=== PATIENT | male | born 1945 | race Caucasian/White ===

== ENCOUNTER 2017-10-25 07:52 | Day surgery (SDC) | payer MEDICARE, SELFPAY ==
[2017-10-25] MEDS ORDERED: Propofol 200 MG/20 ML SDV ONE ×2 (08:24→09:37)
[2017-10-25] MEDS ORDERED: fentaNYL 100 MCG/2 ML SDV ONE (08:24)
[2017-10-25] MEDS ORDERED: Sodium Chloride 0.9% 1,000 ML IV SCH (09:00)
[2017-10-25 10:50] VITALS: BP 143/91
--- NOTE | 2017-10-25 15:29 | OR ---
DATE OF PROCEDURE: 10/25/2017 PROCEDURES: 1. Esophagogastroduodenoscopy. 2. Colonoscopy. FINDINGS: 1. Inflammation in the duodenum consistent with duodenitis. 2. Inflammation in the antrum consistent with gastritis. 3. Inflammation at GE junction consistent with reflux disease. 4. All of the #1, #2, and #3 all biopsied using cold biopsy forceps on multiple locations. 5. Mass at 45 cm nearly completely obstructing the lumen (biopsied using cold biopsy forceps, hot snare, and tattooed distally x2 with Bekah ink). 6. Diverticulosis, significant. 7. Incomplete colonoscopy due to the inability to advance the scope past this mass. RISKS: Risks, benefits, alternatives, limitations including, but not limited to infection, bleeding, and perforation were explained to the patient, who wished to proceed. PREOPERATIVE DIAGNOSIS: Positive FIT test. POSTOPERATIVE DIAGNOSIS: Positive FIT test. PROCEDURE IN DETAIL: The patient was placed in the left lateral decubitus position. The EGD scope was introduced and advanced atraumatically to the second part of the duodenum. In the duodenal bulb, only there was inflammation consistent with duodenitis. This was biopsied using cold biopsy forceps. Similar-type inflammation/gastritis was noted in the antrum, which was also biopsied for H. pylori evaluation. Upon retroflex, the patient had no hiatal hernia, but did have inflammation at the GE junction consistent with reflux disease; therefore, this was biopsied multiple times. However, the patient has had a rather an avascular looking distal esophagus; therefore, limited biopsies were performed. The remainder of the esophagus was normal. Digital rectal exam was performed next and it did not show any abnormalities. The scope was introduced and advanced atraumatically to 45 cm from the anal verge. At this location, there was a near obstructing mass. This was biopsied multiple times and this was tattooed with Bekah ink distally to this. Of note, even if this is a benign process, this is almost completely obstructing the lumen and will inevitably obstruct the lumen. The patient also has diverticulosis, however, the procedure was terminated at this time due to the mass and inability to move past that. The patient tolerated the procedure well. Cory Regalado MD /[id number]
== END 2017-10-25 11:35 | disposition home or self-care (01) ==
LOC: JP.SDS 07:52
PROVIDERS: ATTEND Surgery
DX: K29.50 Unspecified chronic gastritis without bleeding (principal); K29.80 Duodenitis without bleeding; K57.30 Diverticulosis of large intestine without perforation or abscess without bleeding; K63.5 Polyp of colon; I10 Essential (primary) hypertension; Z88.8 Allergy status to other drugs, medicaments and biological substances
CPT/HCPCS: 43239; 45380; 88305; 88342; J2704; J3010; J7040

== ENCOUNTER 2018-01-31 08:47 | Day surgery (SDC) | payer MEDICARE, OTHER, SELFPAY ==
[~2018-01-31 08:47] MED LIST: Lactated Ringers 1,000 ML IV SCH
[2018-01-31] MEDS ORDERED: ceFAZolin 2 GM in Premix Bag 1 BAG IV ONE (09:00)
[2018-01-31] MEDS ORDERED: Midazolam 1 MG/ML 2 ML SDV ONE (10:32)
[2018-01-31] MEDS ORDERED: fentaNYL 100 MCG/2 ML SDV ONE (10:32)
[2018-01-31] MEDS ORDERED: Propofol 200 MG/20 ML SDV ONE (10:32)
[2018-01-31 12:49] VITALS: BP 125/68
--- NOTE | 2018-02-01 07:44 | OR ---
DATE OF PROCEDURE: 01/31/2018 PROCEDURE: Colonoscopy to the transverse colon. FINDINGS: Large polypoid type bleeding mass, not amenable to snare resection. COMPLICATIONS: None. COAT EXAMINER: None. PREOPERATIVE DIAGNOSIS: Mass at 45 cm. POSTOPERATIVE DIAGNOSIS: Mass at 45 cm. RISK: Risks, benefits, alternatives, limitations including, but not limited to infection, bleeding, and perforation were explained to the patient and wished to proceed. PROCEDURE IN DETAIL: The patient was placed in left lateral decubitus position. Digital rectal exam was performed without abnormality. The scope was introduced and was able to passed past the mass. Multiple attempts were made to excise this mass using a snare; however, even with our larger snare and multiple snares were unable to be around this. Piecemeal biopsy was then performed with hot snare. The Endomark ink was injected at the distal margin of the base. No other abnormalities were noted. The patient tolerated the procedure well. Cory Regalado MD /[id number]
== END 2018-01-31 13:00 | disposition home or self-care (01) ==
LOC: JP.SDS 08:47
PROVIDERS: ATTEND Surgery
DX: K63.5 Polyp of colon (principal); Z88.8 Allergy status to other drugs, medicaments and biological substances
CPT/HCPCS: 88305; J0690; J2250; J2704; J3010; J7120

== ENCOUNTER 2018-02-08 05:28 | Inpatient (IN) | payer MEDICARE, OTHER ==
[2018-02-08] MEDS ORDERED: Celecoxib 200 MG Cap PO ONE (05:45)
[2018-02-08] MEDS ORDERED: Acetaminophen 500 MG Tab PO ONE (05:45)
[2018-02-08] MEDS ORDERED: Gabapentin 300 MG Cap PO ONE (05:45)
[2018-02-08] MEDS ORDERED: Scopolamine 1.5 MG Transdermal Patch TOP SCH (05:45)
[2018-02-08] MEDS: Lactated Ringers 1,000 ML IV SCH ×2 (06:43→12:16)
[2018-02-08] MEDS ORDERED: ceFAZolin 2 GM in Premix Bag 1 BAG IV ONE (07:00)
[2018-02-08] MEDS ORDERED: Albuterol/Ipratropium 3.0-0.5 MG/3 ML Neb Soln NEB ONE (07:15)
[2018-02-08] MEDS ORDERED: Succinylcholine 200 MG/10 ML MDV ONE (07:23)
[2018-02-08] MEDS ORDERED: Neostigmine Methylsulfate 1 MG/ML 5 ML Syringe ONE (07:23)
[2018-02-08] MEDS ORDERED: Rocuronium 50 MG/5 ML Vial ONE (07:23)
[2018-02-08] MEDS ORDERED: Ondansetron 4 MG/2 ML SDV ONE (07:23)
[2018-02-08] MEDS ORDERED: Glycopyrrolate 0.2 MG/ML 5 ML MDV ONE (07:23)
[2018-02-08] MEDS ORDERED: Propofol 200 MG/20 ML SDV ONE (07:23)
[2018-02-08] MEDS ORDERED: Dexamethasone 4 MG/ML SDV ONE (07:23)
[2018-02-08] MEDS ORDERED: fentaNYL 250 MCG/5 ML SDV ONE ×2 (07:24→08:41)
[2018-02-08] MEDS ORDERED: metroNIDAZOLE/Normal Saline 500 MG in Premix Bag 1 BAG IV ONE (07:30)
[2018-02-08] MEDS ORDERED: Ropivacaine 40 ML, Dexamethasone 8 MG, EPINEPHrine 0.4 MG, Sodium Chloride 0.9% 37.6 ML NERVRT ONE ×4 (07:30)
[2018-02-08] MEDS ORDERED: Bupivacaine 0.5% 50 ML MDV ONE (10:56)
[2018-02-08] MEDS ORDERED: Lidocaine 1% with EPINEPHrine 1:100,000 50 ML MDV ONE (10:56)
[2018-02-08] MEDS ORDERED: Scopolamine 1.5 MG Transdermal Patch TOP ONE (11:23)
[2018-02-08] MEDS ORDERED: diphenhydrAMINE 50 MG/ML SDV IVPUSH PRN (11:23)
[2018-02-08] MEDS ORDERED: Nicotine 7 MG/24 Hr Patch TRDERM PRN (13:52)
[2018-02-08] MEDS: ceFAZolin 2 GM in Premix Bag 1 BAG IV SCH ×2 (14:43→21:04)
[2018-02-08] MEDS: fentaNYL 100 MCG/2 ML SDV IVPUSH PRN ×4 (15:22→21:24)
[2018-02-08] MEDS: metroNIDAZOLE/Normal Saline 500 MG in Premix Bag 1 BAG IV SCH ×2 (15:58→23:21)
[2018-02-08] MEDS: VERIFY SCOP PATCH TOP SCH (15:59)
[2018-02-08] MEDS: oxyCODONE 5 MG Tab PO PRN ×2 (19:26→23:21)
[2018-02-08] MEDS: Albuterol/Ipratropium 3.0-0.5 MG/3 ML Neb Soln NEB PRN (21:11)
[2018-02-09] MEDS: Lactated Ringers 1,000 ML IV SCH ×2 (03:07→17:27)
[2018-02-09] MEDS: oxyCODONE 5 MG Tab PO PRN ×7 (03:07→20:52)
[2018-02-09] MEDS: fentaNYL 100 MCG/2 ML SDV IVPUSH PRN (07:20)
[2018-02-09] MEDS ORDERED: BRANDY PO PRN (08:01)
[2018-02-09] MEDS: VERIFY SCOP PATCH TOP SCH (08:34)
[2018-02-09] MEDS ORDERED: Ertapenem 1 GM in Sodium Chloride 0.9% 100 ML IV ONE (08:47)
[2018-02-09] MEDS: Clopidogrel 75 MG Tab PO SCH (08:51)
[2018-02-09] MEDS: Enoxaparin 40 MG/0.4 ML Syringe SUBCUT SCH (08:51)
[2018-02-09] MEDS ORDERED: Non-Formulary Medication 1 Each (Atorvastatin [Lipitor] 40 MG) PO SCH (09:00)
[2018-02-09] MEDS ORDERED: Non-Formulary Medication 1 Each (Cetirizine Hcl [Zyrtec] 10 MG) PO SCH (09:00)
[2018-02-09] MEDS: atorvaSTATin 20 MG Tab PO SCH (09:20)
[2018-02-09] MEDS: Cetirizine 10 MG Tab PO SCH (09:20)
[2018-02-09] MEDS: Sennosides 8.6 MG Tab PO SCH ×2 (09:20→20:52)
[2018-02-09] MEDS: Acetaminophen 1,000 MG in Premix Bag 1 BAG IV SCH ×3 (09:20→19:34)
[2018-02-09] MEDS: Bisacodyl 5 MG Tab PO SCH ×2 (09:20→20:52)
[2018-02-09] MEDS: Tamsulosin 0.4 MG Cap.ER PO SCH (09:20)
--- NOTE | 2018-02-09 09:35 | PN ---
DATE OF SERVICE: 02/09/2018 SUBJECTIVE: The patient is doing well. Pain is well controlled. No nausea, vomiting, shortness of breath, or chest pain. OBJECTIVE: VITAL SIGNS: Stable. Temperature 97.8, blood pressure 129/77, 97% on room air, respirations 20. CARDIOVASCULAR: Regular rhythm and rate. RESPIRATORY: Lungs are clear to auscultation bilaterally. ABDOMEN: Bowel sounds positive. Dressings are intact. LABORATORY RESULTS: Show a hemoglobin of 11.6. Creatinine is 1.5. Glucose 133. ASSESSMENT: Status post sigmoid colon resection. PLAN: We will advance his diet today. We will start Ensure cartons 3 times a day. We will continue the epidural. We will enforce mobilization, saline lock if his p.o. is being tolerated. We will hold the ibuprofen as it is a contraindication with his Plavix. Start Flomax. Continue Entereg. Start Dulcolax. Discharge plan, Physical Therapy to see. Reassess in the a.. Cory Regalado MD /[id number]
[2018-02-09] MEDS: Brimonidine 0.2% Ophth Soln 5 ML Bottle EYEBOTH SCH (12:23)
[2018-02-09] MEDS: Albuterol/Ipratropium 3.0-0.5 MG/3 ML Neb Soln NEB PRN (19:28)
[2018-02-09] MEDS: Latanoprost 0.005% Ophth Soln 2.5 ML Bottle EYEBOTH SCH (20:54)
[2018-02-10] MEDS: fentaNYL 100 MCG/2 ML SDV IVPUSH PRN (01:04)
[2018-02-10] MEDS: Ondansetron 4 MG/2 ML SDV IVPUSH PRN (01:06)
[2018-02-10] MEDS: Acetaminophen 1,000 MG in Premix Bag 1 BAG IV SCH ×2 (03:32→08:55)
[2018-02-10] MEDS: Brimonidine 0.2% Ophth Soln 5 ML Bottle EYEBOTH SCH (08:55)
[2018-02-10] MEDS: Tamsulosin 0.4 MG Cap.ER PO SCH (08:55)
[2018-02-10] MEDS: Cetirizine 10 MG Tab PO SCH (08:55)
[2018-02-10] MEDS: Sennosides 8.6 MG Tab PO SCH ×2 (08:56→21:09)
[2018-02-10] MEDS: Clopidogrel 75 MG Tab PO SCH (08:56)
[2018-02-10] MEDS: Bisacodyl 5 MG Tab PO SCH ×2 (08:57→21:08)
[2018-02-10] MEDS: atorvaSTATin 20 MG Tab PO SCH (08:57)
[2018-02-10] MEDS: Enoxaparin 40 MG/0.4 ML Syringe SUBCUT SCH (08:57)
[2018-02-10] MEDS: Lactated Ringers 1,000 ML IV SCH (08:59)
[2018-02-10] MEDS: VERIFY SCOP PATCH TOP SCH (08:59)
--- NOTE | 2018-02-10 12:10 | PN ---
DATE OF SERVICE: 02/10/2018 SUBJECTIVE: The patient is doing well today. Pain is controlled. No nausea, vomiting, shortness of breath, or chest pain. No GI activity yet. OBJECTIVE: VITAL SIGNS: Stable. CARDIOVASCULAR: Regular rhythm and rate. RESPIRATORY: Lungs are clear to consultation bilaterally. ABDOMEN: Bowel sounds are positive, but limited. Incision is healing well. BRANDI output is serosanguineous. LABORATORY RESULTS: Show improvement in hemoglobin, white blood cell count, and creatinine. ASSESSMENT: Status post sigmoid colon resection. PLAN: We will continue to work on ambulation. We will restrict his diet slightly today as he may be developing an ileus. We will also remove his Jones catheter and other standard postop day 2 Fast-Track protocols. Of note, the progress note on 02/09 referred to his epidural, that was an error. The patient does not have nor has had an epidural during this hospitalization. Cory Regalado MD /[id number]
[2018-02-10] MEDS: oxyCODONE 5 MG Tab PO PRN ×2 (16:09→21:10)
[2018-02-10] MEDS: Latanoprost 0.005% Ophth Soln 2.5 ML Bottle EYEBOTH SCH (21:09)
[2018-02-11] MEDS: oxyCODONE 5 MG Tab PO PRN (03:01)
[2018-02-11] MEDS ORDERED: Albuterol/Ipratropium 3.0-0.5 MG/3 ML Neb Soln NEB PRN (08:42)
[2018-02-11] MEDS: Ondansetron 4 MG/2 ML SDV IVPUSH PRN (09:02)
--- NOTE | 2018-02-11 09:11 | CR ---
Acute abdomen series The heart and vascular structures are within normal limits. There are no infiltrates or effusions. Th ere is right basilar atelectasis. There are scattered air-fluid levels throughout the abdomen. There is no free air. There is a endovas cular stent graft within the distal abdominal aorta and common iliac arteries. Cutaneous surgical cli ps are demonstrated midline. Impression: 1. Nonspecific bowel gas pattern. The pattern and appearance is suggestive of a postoperative ileus. Clinical correlation recommended.
--- NOTE | 2018-02-11 09:20 | PN ---
DATE OF SERVICE: 02/11/2018 SUBJECTIVE: The patient is doing acceptable today. He is not passing any gas nor having bowel movements. His pain is controlled. OBJECTIVE: VITAL SIGNS: Stable. He is afebrile. Blood pressure 120 systolic with tachycardia. CARDIOVASCULAR: Regular rhythm and rate. RESPIRATORY: Mild crackles bilaterally. ABDOMEN: Distended. No rebound or guarding. DIAGNOSTIC STUDIES: Laboratory results are pending. ASSESSMENT: Status post sigmoid colon resection. PLAN: 1. GI. The patient most likely developed a postop ileus. We will address his electrolytes to see if this is part of the problem. We will also do abdominal films today. In addition, we will place an NG tube as his abdominal incision has not healed as well as typical due to mild his postoperative bleeding due to his Plavix. There is no evidence of dehiscence or evisceration. However, this will be closely monitored by myself and the nursing staff. In addition, we will place him nil per os. 2. Fluid, electrolyte, nutrition. We will repeat his basic metabolic panel. Today, we will start him back on IV fluids. Nursing staff tells me that he is approximately 100 mL negative with respect to his total I's and O's. 3. Respiratory. Mild crackles bilaterally. As previously stated, his I's and O's seem to be matched fairly well. Therefore, we will not give him any Lasix at this time, but we will support this with adding DuoNeb q.i.d. and p.r.n. 4. Hematology. Hemoglobin is still pending. The drain output is serosanguineous and slowly decreasing per nursing staff. The patient did have petechiae type bleeding secondary to his Plavix. 5. Activity. We will continue to work on his activity level. 6. Prophylaxis. The patient is on Lovenox at the time. We will continue that along with his SCDs. 7. Nutrition. As previously stated, we will place n.p.o. at this time. Cory Regalado MD /[id number]
[2018-02-11] MEDS: Sodium Chloride 0.9% 1,000 ML IV SCH ×2 (09:28→18:00)
--- NOTE | 2018-02-11 09:38 | OR ---
DATE OF PROCEDURE: 02/08/2018 PROCEDURE PERFORMED: 1. Sigmoid colon resection, proximal sigmoid colon (24194). 2. Sigmoid colon resection, distal colon. 3. Splenic mobilization (93360). 4. Small-bowel resection (12011). 5. Spleen biopsy (42559). 6. Colonoscopy (30422). PREOPERATIVE DIAGNOSIS: Colon polyp versus mass at approximately 45 cm. POSTOPERATIVE DIAGNOSIS: Colon polyp versus mass at approximately 45 cm. FINDINGS: Dense diverticular inflammation involving the small bowel and the sigmoid colon. COMPLICATIONS: None. HARDWOOD FLOOR SANDER: None. ANESTHESIA: TAP block/general/local. RISKS: Risks, benefits, alternatives, limitations including, but not limited to infection, bleeding, perforation, requirement for ostomy, re-operations, leaks, abscess, and cardiovascular risks, including , were explained to the patient. We also discussed the fact that the patient had a recent AAA repair, and he needs to remain on Plavix for this, increasing his risk profile. He and his family understood these risks and wished to proceed. PROCEDURE IN DETAIL: The patient was placed in supine position. A midline abdominal incision would be made. This would be opened to facilitate dissection during this procedure. The liver was palpated. No abnormalities were noted. Immediately, the patient was noted to have dense adhesions associated with his left lower quadrant, specifically sigmoid colon. This is unclear if this was an active diverticulitis or due to a longstanding history of diverticulosis/diverticulitis. Nonetheless, dissection would could be commenced in this area using blunt and sharp dissection. Of note, during this process, a piece of small bowel would be injured by mobilizing this from the inflammatory area. This caused a circumferential bruising type injury, although no direct perforation would be noted. This would be resected at the end of the case. This small bowel would be resected at the end of the case by a blue load stapler, transecting this small area, white load for the mesentery in a [id number] functional end- to-end anastomosis would be performed by creating a defect in the antimesenteric side, stapling, and using Allis clamps to reapproximate the defect and then a subsequent blue load. Tisseel would be placed over this, and the mesenteric defect would be closed with 3-0 Vicryl suture. Prior to this, the colon resection continued by dissection of the avascular line, mobilization in a lateral to medial fashion. The area of concern had been marked with Bekah ink during the previous colonoscopy, and the proximal sigmoid would be transected using a blue load stapler after the defect was created in this. The mesentery would be mobilized and transected with a white load stapler. Prior to this, mobilization of splenic flexure would be commenced. On inspection of the spleen; however, white plaque-like nodules were noted across the splenic surface. The etiology of this is unknown, therefore, a biopsy would be obtained. A wedge biopsy of the distal tip of the spleen would be performed and sent to pathology. Repair of the spleen/bleeding control would be with suture and electrocautery. This will be sent for specimen called splenic biopsy. The splenic mobilization continued during this process. Careful attention was made to lyse adhesions, however, also attempt was made to be mindful of the other structures. Once the descending colon junction would be mobilized off the splenic flexure, this would be amenable to a tension-free anastomosis. As the specimen already had been removed and a single stitch was placed superior, the most feasible anastomotic attempt would be with a 28 mm EEA stapler. The descending colon would have a defect created in this, the anvil would be introduced without difficulty, and a blue load was used to re-close the colon. The EEA stapler would then be inserted transrectally and advanced. This was advanced to approximately 5 cm from its proximal margin. However, due to the inflammation, a serosal tear was created in the sigmoid, therefore, this portion of the sigmoid colon would be resected as a second specimen. This was resected using a black load curvilinear stapler, and the mesentery would be addressed with white load staplers. This would be sent for second sigmoid colon, specimen called distal sigmoid with a single stitch placed superiorly. The EEA would eventually be merged with its respective anvil and fired in a standard fashion. Prior to removal of the anvil, bolstering sutures of 3-0 Vicryl would be placed to reinforce the anastomosis. The stapler was removed, and donuts were inspected to show full firing of the stapler with no defect. The small bowel and remaining abdominal structures were retracted, the abdomen was filled with saline, and a colonoscopy was performed. The colonoscope was introduced and advanced through the anastomosis. The anastomosis appeared healthy and viable. No bubbles were noted, thus completing a negative leak test. Colonoscope was then removed. The liquid was removed. Tisseel was placed around the anastomosis. Although drains are not usually placed, a drain was placed due to the patient's history/current use of Plavix, and he had small petechiae type bleeding. The abdomen was inspected in multiple increments of leaving the abdomen for 1-2 minutes and inspected for any bleeding. Two areas of weepy-type bleeding were noted, these were addressed best with electrocautery, and Tisseel was also placed on this. At this time, the small bowel anastomosis would be performed, and then the areas of bleeding were reinspected and they were noted not to be bleeding. Nonetheless, a Chapo-Whitley drain was placed in the left abdomen just to facilitate any hematoma evacuation, if it presents. Prior to this, the abdomen was irrigated. Of note, gown and gloves were changed every time, moving from a dirty to clean, such as from the colonoscopy back in the abdomen. Once the anastomosis was complete, Tisseel, as mentioned, was placed, a drain was placed, and the abdomen was closed with 0 Vicryl running sutures x2. Subcutaneous tissues reapproximated, and stapler was used to close the skin. Dressings were applied. The patient tolerated the procedure well. Cory Regalado MD /[id number]
[2018-02-11] MEDS: Albuterol/Ipratropium 3.0-0.5 MG/3 ML Neb Soln NEB SCH ×3 (10:42→22:14)
[2018-02-11] MEDS: Brimonidine 0.2% Ophth Soln 5 ML Bottle EYEBOTH SCH (11:08)
--- NOTE | 2018-02-11 11:08 | OR ---
DATE OF PROCEDURE: 02/08/2018 ADDENDUM: PROCEDURE: Transversus abdominis plain block (67059). COMPLICATIONS: None. STOKER ERECTOR: None. ANESTHESIA: None. RISKS: Risks, benefits, alternatives, limitations including, but not limited to infection, bleeding, injury to structures were explained to the patient and he wished to proceed. We also discussed the risk of intravascular injection. PROCEDURE IN DETAIL: The patient was placed in supine position. The right block would be performed first. Using ultrasound guidance, the plane between the internal oblique and transversus abdominis was identified. The needle would be advanced in a medial to lateral standard fashion. A test injection of the solution was commenced, and the body shop technician and myself both felt the plane was correct. Therefore, a 40 mL of the mixture was injected. Please see MAR for exact description, but includes steroid and lidocaine with epinephrine. This was felt to be in a good location. The needle was removed. Of note, sterile technique, including chlorhexidine and draping, was commenced on both sides. The same technique was then performed on the left side in the same manner, same fashion, same technique, using the same equipment in the same sequence. The patient tolerated the procedure well. Cory Regalado MD /[id number]
[2018-02-11] MEDS: Bisacodyl 5 MG Tab PO SCH ×2 (11:13→20:58)
[2018-02-11] MEDS: Tamsulosin 0.4 MG Cap.ER PO SCH (11:13)
[2018-02-11] MEDS: Enoxaparin 40 MG/0.4 ML Syringe SUBCUT SCH (11:14)
[2018-02-11] MEDS: Sennosides 8.6 MG Tab PO SCH ×2 (11:14→20:58)
[2018-02-11] MEDS: Cetirizine 10 MG Tab PO SCH (11:14)
[2018-02-11] MEDS: atorvaSTATin 20 MG Tab PO SCH (11:14)
[2018-02-11] MEDS: VERIFY SCOP PATCH TOP SCH (11:16)
[2018-02-11] MEDS: Clopidogrel 75 MG Tab PO SCH (11:43)
[2018-02-11] MEDS: Latanoprost 0.005% Ophth Soln 2.5 ML Bottle EYEBOTH SCH (21:00)
[2018-02-12] MEDS: Sodium Chloride 0.9% 1,000 ML IV SCH ×3 (02:37→18:58)
[2018-02-12] MEDS: Albuterol/Ipratropium 3.0-0.5 MG/3 ML Neb Soln NEB SCH ×4 (05:50→23:52)
[2018-02-12] MEDS ORDERED: Benzocaine/Cetylpyridinium/Menthol Lozenge MUCMEM PRN (08:35)
--- NOTE | 2018-02-12 08:39 | PN ---
DATE OF SERVICE: 02/12/2018 SUBJECTIVE: The patient is similar to yesterday. His pain is well controlled. No nausea, vomiting, shortness of breath, or chest pain. OBJECTIVE: VITAL SIGNS: Stable. Temperature 98.2, blood pressure 114/59, pulse 94, respirations 18, 94% on room air. CARDIOVASCULAR: Regular rhythm and rate. RESPIRATORY: Lungs clear to consultation bilaterally. ABDOMEN: Incision is intact. Distention is significantly improved. ASSESSMENT: Postoperative ileus. PLAN: We will recheck his labs today. There is no electrolyte abnormality today. His plain x-ray showed a postoperative ileus. Cory Regalado MD /[id number]
[2018-02-12] MEDS: Bisacodyl 5 MG Tab PO SCH ×2 (09:43→20:58)
[2018-02-12] MEDS: Clopidogrel 75 MG Tab PO SCH (09:44)
[2018-02-12] MEDS: Tamsulosin 0.4 MG Cap.ER PO SCH (09:44)
[2018-02-12] MEDS: Cetirizine 10 MG Tab PO SCH (09:44)
[2018-02-12] MEDS: atorvaSTATin 20 MG Tab PO SCH (09:44)
[2018-02-12] MEDS: Brimonidine 0.2% Ophth Soln 5 ML Bottle EYEBOTH SCH (09:44)
[2018-02-12] MEDS: Sennosides 8.6 MG Tab PO SCH ×2 (09:44→20:58)
[2018-02-12] MEDS: Enoxaparin 40 MG/0.4 ML Syringe SUBCUT SCH (09:45)
[2018-02-12] MEDS: VERIFY SCOP PATCH TOP SCH (09:48)
[2018-02-12] MEDS: oxyCODONE 5 MG Tab PO PRN (18:19)
[2018-02-12] MEDS: Latanoprost 0.005% Ophth Soln 2.5 ML Bottle EYEBOTH SCH (21:00)
[2018-02-13] MEDS: oxyCODONE 5 MG Tab PO PRN ×3 (01:05→19:28)
[2018-02-13] MEDS: Sodium Chloride 0.9% 1,000 ML IV SCH (03:19)
[2018-02-13] MEDS: Albuterol/Ipratropium 3.0-0.5 MG/3 ML Neb Soln NEB SCH ×4 (05:29→22:00)
[2018-02-13] MEDS: Cetirizine 10 MG Tab PO SCH (08:58)
[2018-02-13] MEDS: Tamsulosin 0.4 MG Cap.ER PO SCH (08:58)
[2018-02-13] MEDS: Clopidogrel 75 MG Tab PO SCH (08:58)
[2018-02-13] MEDS: Sennosides 8.6 MG Tab PO SCH ×2 (08:58→21:46)
[2018-02-13] MEDS: Bisacodyl 5 MG Tab PO SCH ×2 (08:58→21:45)
[2018-02-13] MEDS: Enoxaparin 40 MG/0.4 ML Syringe SUBCUT SCH (08:58)
[2018-02-13] MEDS: atorvaSTATin 20 MG Tab PO SCH (08:58)
[2018-02-13] MEDS: Brimonidine 0.2% Ophth Soln 5 ML Bottle EYEBOTH SCH (08:58)
[2018-02-13] MEDS: VERIFY SCOP PATCH TOP SCH (08:59)
[2018-02-13] MEDS: Latanoprost 0.005% Ophth Soln 2.5 ML Bottle EYEBOTH SCH (21:58)
[2018-02-14] MEDS: oxyCODONE 5 MG Tab PO PRN (02:52)
[2018-02-14] MEDS: Albuterol/Ipratropium 3.0-0.5 MG/3 ML Neb Soln NEB SCH (04:22)
[2018-02-14 07:51] VITALS: BP 133/74
[2018-02-14] MEDS: Bisacodyl 5 MG Tab PO SCH (08:12)
[2018-02-14] MEDS: VERIFY SCOP PATCH TOP SCH (08:13)
[2018-02-14] MEDS: Sennosides 8.6 MG Tab PO SCH (08:13)
[2018-02-14] MEDS: Clopidogrel 75 MG Tab PO SCH (08:14)
[2018-02-14] MEDS: atorvaSTATin 20 MG Tab PO SCH (08:14)
[2018-02-14] MEDS: Brimonidine 0.2% Ophth Soln 5 ML Bottle EYEBOTH SCH (08:14)
[2018-02-14] MEDS: Cetirizine 10 MG Tab PO SCH (08:14)
[2018-02-14] MEDS: Enoxaparin 40 MG/0.4 ML Syringe SUBCUT SCH (08:14)
[2018-02-14] MEDS: Tamsulosin 0.4 MG Cap.ER PO SCH (08:14)
--- NOTE | 2018-02-14 08:49 | PN ---
DATE OF SERVICE: 02/14/2018 DISCHARGE DIAGNOSIS: Status post sigmoid colon resection. ADDITIONAL CONSULTATIONS DURING THIS HOSPITALIZATION: None. SUMMARY OF HOSPITAL COURSE: A 72-year-old male who underwent uneventful sigmoid colon resection. The patient did well except he developed postoperative ileus for approximately 2 days. This has subsequently resolved. Prior to discharge, his pain is well controlled. He had no nausea, vomiting, shortness of breath, or chest pain. He is having bowel movements without difficulty and is requesting to be discharged. FOLLOWUP: Follow up with Surgery in 7-14 days. ACTIVITY: No lifting greater 30 pounds x30 days. DISCHARGE MEDICATIONS: Please see MAR, but include his home medications and [place] for pain. Cory Regalado MD /[id number]
--- NOTE | 2018-02-14 09:04 | PN ---
DATE OF SERVICE: 02/14/2018 SUBJECTIVE: The patient is doing well. Pain is well-controlled. No nausea, vomiting, shortness of breath, or chest pain. The patient is having bowel movements. OBJECTIVE: VITAL SIGNS: Stable. CARDIOVASCULAR: Regular rhythm and rate. RESPIRATORY: Lungs are clear to auscultation bilaterally. ABDOMEN: Bowel sounds positive. Incision is healing well. ASSESSMENT: Status post sigmoid colon resection. PLAN: The patient will be discharged today. Please see discharge summary for further details. Cory Regalado MD /[id number]
== END 2018-02-14 12:00 | disposition home or self-care (01) | DRG 336 ==
LOC: JP.MS 05:28 → JP.SDS 05:28 → EDSTATUS 07:30 → JP.ICU 11:45 → JP.MS 02-09 13:50
PROVIDERS: ADMIT Surgery; ATTEND Surgery
PROC: 0DBN0ZX Excision of Sigmoid Colon, Open Approach, Diagnostic (ICD-10-PCS; principal; 2018-02-08)
PROC: 0DNN0ZZ Release Sigmoid Colon, Open Approach (ICD-10-PCS; 2018-02-08)
PROC: 0DBB0ZX Excision of Ileum, Open Approach, Diagnostic (ICD-10-PCS; 2018-02-08)
PROC: 07B Lymphatic and Hemic Systems, Excision (ICD-10-PCS; 2018-02-08)
PROC: 0DBN0ZX Excision of Sigmoid Colon, Open Approach, Diagnostic (ICD-10-PCS; 2018-02-08)
PROC: 0DJD8ZZ Inspection of Lower Intestinal Tract, Via Natural or Artificial Opening Endoscopic (ICD-10-PCS; 2018-02-08)
PROC: 3E0T3BZ Introduction of Anesthetic Agent into Peripheral Nerves and Plexi, Percutaneous Approach (ICD-10-PCS; 2018-02-08)
PROC: 30233N1 Transfusion of Nonautologous Red Blood Cells into Peripheral Vein, Percutaneous Approach (ICD-10-PCS; 2018-02-08)
PROC: 30233K1 Transfusion of Nonautologous Frozen Plasma into Peripheral Vein, Percutaneous Approach (ICD-10-PCS; 2018-02-08)
DX: D12.5 Benign neoplasm of sigmoid colon (principal); S36.428A Contusion of other part of small intestine, initial encounter; S36.533A Laceration of sigmoid colon, initial encounter; K56.7 Ileus, unspecified; K63.89 Other specified diseases of intestine; Y83.8 Other surgical procedures as the cause of abnormal reaction of the patient, or of later complication, without mention of misadventure at the time of the procedure; Y92.234 Operating room of hospital as the place of occurrence of the external cause; D73.89 Other diseases of spleen; R23.3 Spontaneous ecchymoses; Z87.898 Personal history of other specified conditions; K57.50 Diverticulosis of both small and large intestine without perforation or abscess without bleeding; I10 Essential (primary) hypertension; F17.210 Nicotine dependence, cigarettes, uncomplicated; E78.5 Hyperlipidemia, unspecified; Z79.82 Long term (current) use of aspirin; Z79.01 Long term (current) use of anticoagulants
CPT/HCPCS: 36415; 36430; 74022; 74022-26; 76998; 80048; 82962; 85018; 85025; 85027; 86850; 86900; 86901; 86920; 86922; 88305; 88307; 94640; A9270-GY; J0131; J0171; J0330; J0690; J1100; J1650; J2185; J2405; J2704; J2710; J2795; J3010; J7040; J7050; J7120; J7620; P9016; P9017

== ENCOUNTER 2018-02-19 12:40 | Inpatient (IN) | payer MEDICARE ==
[2018-02-19] MEDS ORDERED: Sodium Chloride 0.9% 10 ML Syringe FLUSH PRN (13:00)
[2018-02-19] MEDS ORDERED: Pantoprazole 40 MG Vial IVPUSH ONE (13:00)
[2018-02-19] MEDS ORDERED: Lactated Ringers 1,000 ML IV ONE (13:07)
--- NOTE | 2018-02-19 13:07 | EDM.PDOC ---
ED HPI GENERAL MEDICAL PROBLEM - General Chief Complaint: Gastrointestinal Problem Stated Complaint: DIZZY; WEAKNESS Time Seen by Provider: 02/19/18 12:55 Source of Information: Reports: Patient, Family, Old Records, RN Notes Reviewed History Limitations: Reports: No Limitations - History of Present Illness INITIAL COMMENTS - FREE TEXT/NARRATIVE: 72-year-old gentleman presents to the emergency department today with complaint of bright red blood per rectum, he recently underwent colon resection for colonic mass on the 16 of this month, states is doing well and then over the last 24-48 hrs. started having bright red blood maroon-colored stools he's had 4 stools today feels very weak and lightheaded, denies any fevers - Related Data Allergies Allergy/AdvReac Type Severity Reaction Status Date / Time tetanus and diphtheria Allergy Hives Verified 02/19/18 13:05 toxoids [tetanus & diphtheria toxoids] Home Meds: Home Meds Brimonidine Tartrate [Brimonidine Tartrate 0.2% Ophth Soln] 1 drop EYEBOTH DAILY 09/27/15 [History] Latanoprost 1 drop EYEBOTH BEDTIME 09/27/15 [History] Aspirin [Halfprin] 81 mg PO DAILY 10/23/17 [History] Lisinopril [Prinivil] 20 mg PO DAILY 10/23/17 [History] atorvaSTATin [Lipitor] 40 mg PO DAILY 10/23/17 [History] Cetirizine HCl [Zyrtec] 10 mg PO DAILY 01/29/18 [History] Clopidogrel [Plavix] 75 mg PO DAILY 01/29/18 [History] Past Medical History HEENT History: Reports: Glaucoma, Impaired Vision Cardiovascular History: Reports: CAD, High Cholesterol, Hypertension, Stents Respiratory History: Reports: SOB Gastrointestinal History: Reports: Hemorrhoids Musculoskeletal History: Reports: Back Pain, Chronic Endocrine/Metabolic History: Reports: Obesity/BMI 30+ Hematologic History: Reports: Blood Transfusion(s) Immunologic History: Reports: Other (See Below) Other Immunologic History: shingles Dermatologic History: Reports: Other (See Below) Other Dermatologic History: unknown rash on arms and ankles - Infectious Disease History Infectious Disease History: Reports: Chicken Pox, Shingles - Past Surgical History Head Surgeries/Procedures: Reports: None HEENT Surgical History: Reports: None Cardiovascular Surgical History: Reports: Coronary Artery Stent Respiratory Surgical History: Reports: None GI Surgical History: Reports: Colonoscopy Other GI Surgeries/Procedures: Hemorrhoidectomy Endocrine Surgical History: Reports: None Neurological Surgical History: Reports: Other (See Below) Other Neurological Surgeries/Procedures: "surgery between my shoulder blades" Musculoskeletal Surgical History: Reports: Other (See Below) Other Musculoskeletal Surgeries/Procedures:: Back surgery Dermatological Surgical History: Reports: None Social & Family History - Family History Family Medical History: Noncontributory HEENT: Reports: Glaucoma Cardiac: Reports: CAD Respiratory: Reports: None GI: Reports: Bowel Obstruction : Reports: None Musculoskeletal: Reports: Back pain, Chronic Immunologic: Reports: None Oncologic: Reports: Colon - Tobacco Use Smoking Status *Q: Current Every Day Smoker Years of Tobacco use: 60 Packs/Tins Daily: 1.2 Used Tobacco, but Quit: No Second Hand Smoke Exposure: Yes - Caffeine Use Caffeine Use: Reports: Coffee, Soda - Alcohol Use Days Per Week of Alcohol Use: 7 Number of Drinks Per Day: 4 Total Drinks Per Week: 28 - Recreational Drug Use Recreational Drug Use: No ED ROS GENERAL - Review of Systems Review Of Systems: See Below Constitutional: Reports: Weakness. Denies: Fever, Chills HEENT: Reports: No Symptoms Respiratory: Reports: No Symptoms Cardiovascular: Reports: No Symptoms GI/Abdominal: Reports: Abdominal Pain, Black Stool, Bloody Stool. Denies: Nausea, Vomiting Musculoskeletal: Reports: No Symptoms Skin: Reports: No Symptoms Neurological: Reports: Dizziness ED EXAM, GI/ABD - Physical Exam Exam: See Below Text/Narrative:: General: Male mild distress, alert and oriented x3 HEENT: head is atraumatic normocephalic, eyes pupils equal round reactive to light, sclera clear no conjunctivitis appreciated. Ears tympanic membranes clear and parikh landmarks and light reflex are present bilaterally canals are clear. Nose no septal deviation, nares are clear, no blood present. Mouth mucosa is moist and pink no erythema or exudate noted in soft palate, tongue is midline uvula is midline , dentition is intact. Neck: Supple no thyromegaly no tracheal deviation. Nodes: Cervical nodes subclavicular nodes nontender no palpable lymphadenopathy noted. Lungs: clear to auscultation bilaterally with symmetrical respirations, no adventitious noise appreciated. CV: Regular rate and rhythm S1 and S2 appreciated no murmurs rubs or gallops noted. Abdomen: Soft, generalized tenderness to palpation surgical binder in place, no palpable masses or organomegaly appreciated, no distention no guarding bowel sounds are present, . Neuro: Cranial nerves II through XII grossly intact Skin: Warm and dry, intact Extremities: No lower extremity edema appreciated, pedal pulse is +2. Course - Vital Signs Last Recorded V/S: Last Vital Signs Temp 97.4 F 02/19/18 12:46 Pulse 116 H 02/19/18 12:46 Resp 17 02/19/18 12:46 BP 95/53 L 02/19/18 12:46 Pulse Ox 98 02/19/18 12:46 - Orders/Labs/Meds Orders: Active Orders 24 hr Category Date Time Status Peripheral IV Care [RC] . DIRECTED Care 02/19/18 13:01 Active Abdomen Pelvis w Cont [CT] Stat Exams 02/19/18 14:00 Ordered RED BLOOD CELLS LP [BBK] Stat Lab 02/19/18 13:07 Results TYPE AND SCREEN [BBK] Stat Lab 02/19/18 13:07 Results Lactated Ringers [Ringers, Lactated] 1,000 ml Med 02/19/18 13:07 Active IV BOLUS Sodium Chloride 0.9% [Saline Flush] Med 02/19/18 13:00 Active 10 ml FLUSH ASDIRECTED PRN Peripheral IV Insertion Adult [OM.PC] Urgent Oth 02/19/18 13:00 Ordered Transfuse Red Blood Cells [COMM] Stat Oth 02/19/18 13:59 Ordered Medication Orders Lactated Ringer's (Ringers, Lactated) 1,000 mls @ 999 mls/hr IV BOLUS ONE Stop: 02/19/18 14:07 Last Admin: 02/19/18 13:14 Dose: 999 mls/hr Sodium Chloride (Saline Flush) 10 ml FLUSH ASDIRECTED PRN PRN Reason: Keep Vein Open Labs: Laboratory Tests 02/19/18 02/19/18 02/19/18 Range/Units 13:07 13:07 13:07 WBC 16.4 H (4.5-11.0) K/uL RBC 2.09 L (4.30-5.90) M/uL Hgb 7.0 L D (12.0-15.0) g/dL Hct 21.2 L (40.0-54.0) % MCV 101 H (80-98) fL MCH 34 H (27-31) pg MCHC 33 (32-36) % Plt Count 674 H (150-400) K/uL Neut % (Auto) 89 H (36-66) % Lymph % (Auto) 6 L (24-44) % [place] % (Auto) 5 (2-6) % Eos % (Auto) 0 L (2-4) % Baso % (Auto) 0 (0-1) % PT 10.7 (9.5-12.0) sec INR 1.00 (0.80-1.20) Sodium 145 (140-148) mmol/L Potassium 3.7 (3.6-5.2) mmol/L Chloride 109 H (100-108) mmol/L Carbon Dioxide 24 (21-32) mmol/L Anion Gap 15.7 H (5.0-14.0) mmol/L BUN 24 H (7-18) mg/dL Creatinine 1.4 H (0.8-1.3) mg/dL Est Cr Clr Drug Dosing 41.77 mL/min Estimated GFR (MDRD) 50 L (>60) Glucose 123 H (74-106) mg/dL Calcium 8.2 L (8.5-10.1) mg/dL Total Bilirubin 0.2 (0.2-1.0) mg/dL AST 14 L (15-37) U/L ALT 11 L (12-78) U/L Alkaline Phosphatase 95 (46-116) U/L Total Protein 5.5 L (6.4-8.2) g/dL Albumin 2.3 L (3.4-5.0) g/dL Globulin 3.2 (2.3-3.5) g/dL Albumin/Globulin Ratio 0.7 L (1.2-2.2) Blood Type Gel Antibody Screen Crossmatch 02/19/18 Range/Units 13:07 WBC (4.5-11.0) K/uL RBC (4.30-5.90) M/uL Hgb (12.0-15.0) g/dL Hct (40.0-54.0) % MCV (80-98) fL MCH (27-31) pg MCHC (32-36) % Plt Count (150-400) K/uL Neut % (Auto) (36-66) % Lymph % (Auto) (24-44) % [place] % (Auto) (2-6) % Eos % (Auto) (2-4) % Baso % (Auto) (0-1) % PT (9.5-12.0) sec INR (0.80-1.20) Sodium (140-148) mmol/L Potassium (3.6-5.2) mmol/L Chloride (100-108) mmol/L Carbon Dioxide (21-32) mmol/L Anion Gap (5.0-14.0) mmol/L BUN (7-18) mg/dL Creatinine (0.8-1.3) mg/dL Est Cr Clr Drug Dosing mL/min Estimated GFR (MDRD) (>60) Glucose (74-106) mg/dL Calcium (8.5-10.1) mg/dL Total Bilirubin (0.2-1.0) mg/dL AST (15-37) U/L ALT (12-78) U/L Alkaline Phosphatase (46-116) U/L Total Protein (6.4-8.2) g/dL Albumin (3.4-5.0) g/dL Globulin (2.3-3.5) g/dL Albumin/Globulin Ratio (1.2-2.2) Blood Type O NEGATIVE Gel Antibody Screen Negative Crossmatch See Detail Meds: Medications Generic Name Dose Route Start Last Admin Trade Name Freq PRN Reason Stop Dose Admin Lactated Ringer's 1,000 mls @ 999 mls/hr 02/19/18 13:07 02/19/18 13:14 Ringers, Lactated IV 02/19/18 14:07 999 mls/hr BOLUS ONE Administration Sodium Chloride 10 ml 02/19/18 13:00 Saline Flush FLUSH ASDIRECTED PRN Keep Vein Open Discontinued Medications Generic Name Dose Route Start Last Admin Trade Name Freq PRN Reason Stop Dose Admin Pantoprazole Sodium 40 mg 02/19/18 13:00 02/19/18 13:12 Protonix Iv IVPUSH 02/19/18 13:01 40 mg ONETIME ONE Administration Departure - Departure Time of Disposition: 14:05 Disposition: Admitted As Inpatient 64 Condition: Fair Clinical Impression: GI bleed Qualifiers: GI bleed type/associated pathology: melena Qualified Code(s): K92.1 - Melena - Discharge Information Referrals: Rajendra Suarez NP [Primary Care Provider] - Forms: ED Department Discharge Critical Care Note - Critical Care Note Total Time (mins): 20 - My Orders Last 24 Hours: My Active Orders 02/19/18 13:00 Sodium Chloride 0.9% [Saline Flush] 10 ml FLUSH ASDIRECTED PRN Peripheral IV Insertion Adult [OM.PC] Urgent 02/19/18 13:01 Peripheral IV Care [RC] . DIRECTED 02/19/18 13:07 RED BLOOD CELLS LP [BBK] Stat TYPE AND SCREEN [BBK] Stat Lactated Ringers [Ringers, Lactated] 1,000 ml IV BOLUS 02/19/18 13:59 Transfuse Red Blood Cells [COMM] Stat 02/19/18 14:00 Abdomen Pelvis w Cont [CT] Stat - Assessment/Plan Last 24 Hours: My Active Orders 02/19/18 13:00 Sodium Chloride 0.9% [Saline Flush] 10 ml FLUSH ASDIRECTED PRN Peripheral IV Insertion Adult [OM.PC] Urgent 02/19/18 13:01 Peripheral IV Care [RC] . DIRECTED 02/19/18 13:07 RED BLOOD CELLS LP [BBK] Stat TYPE AND SCREEN [BBK] Stat Lactated Ringers [Ringers, Lactated] 1,000 ml IV BOLUS 02/19/18 13:59 Transfuse Red Blood Cells [COMM] Stat 02/19/18 14:00 Abdomen Pelvis w Cont [CT] Stat Plan: Assessment Acuity = acute Site and laterality = GI bleeding complicated in a patient with recent colon resection Etiology = unclear etiology Manifestations = anemic, dizzy, weakness Location of injury = Home Lab values = WBC elevated at 16.4 consistent leukocytosis, hemoglobin low at 7.0 consistent with a macro chromic anemia platelets elevated at 674 consistent with thrombocytosis, creatinine elevated 1.4 consistent with chronic renal failure stage GIII a albumin low at 2.3 consistent hypoalbuminemia Plan He did become hypertensive in the ED he is received 1 L of lactated Ringer's he has [address] 2 units of blood has been ordered and will transfuse when available, called and discussed case with Dr. Regalado he is asked for CT scan abdomen and pelvis with both by mouth and IV contrast plan for admission to the ICU This note was dictated using [employer] voice recognition software please call with any questions on syntax or gary.
[2018-02-19] MEDS ORDERED: Iohexol 300 MG/ML 30 ML Bottle PO ONE (14:31)
[2018-02-19] MEDS ORDERED: Ondansetron 4 MG/2 ML SDV IVPUSH PRN (15:37)
[2018-02-19] MEDS ORDERED: Benzocaine/Cetylpyridinium/Menthol Lozenge MUCMEM PRN (15:37)
[2018-02-19] MEDS ORDERED: hydrOXYzine HCl 100 MG/2 ML SDV IM PRN (15:37)
[2018-02-19] MEDS ORDERED: diphenhydrAMINE 50 MG/ML SDV IVPUSH PRN (15:37)
[2018-02-19] MEDS ORDERED: Sodium Chloride 0.9% 1,000 ML IV SCH ×2 (15:45→20:30)
[2018-02-19] MEDS ORDERED: Sodium Chloride 0.9% 80 ML IV SCH (16:30)
[2018-02-19] MEDS ORDERED: Iopamidol 612 MG/ML 150 ML Bottle IV SCH (16:30)
[2018-02-21 04:05] VITALS: BP 121/52
--- NOTE | 2018-02-21 11:50 | PN ---
DATE OF SERVICE: 02/21/2018 SUBJECTIVE: The patient is doing very well today. Pain is well controlled. No nausea, vomiting, shortness of breath, or chest pain. OBJECTIVE: VITAL SIGNS: Stable. CARDIOVASCULAR: Regular rhythm and rate. RESPIRATORY: Lungs are clear to auscultation bilaterally. ABDOMEN: Bowel sounds positive. Nontender. Nondistended. ASSESSMENT AND PLAN: Status post blood transfusion. The patient is having bowel movements that are nonbloody at this point. His hemoglobin is stable. He will be discharged today. Please see discharge summary for further details. Cory Regalado MD /[id number]
--- NOTE | 2018-02-21 13:32 | DISCH ---
DISCHARGE DIAGNOSIS: Anemia. HOSPITAL COURSE: A pleasant 72-year-old male, who underwent an uneventful sigmoid colon resection. The patient was required to stay on Plavix throughout the entire hospitalization but was subsequently discharged. He presented to the emergency room with lower GI bleeding, anemia, and hemoglobin of 7. The patient was transfused over approximately 24 hours. Prior to discharge, he was having non-bloody regular bowel movements. His hemoglobin was greater than 11 and without change, this was after no transfusion for 24 hours approximately. FOLLOWUP: With Surgery in 7 to 14 days. DISCHARGE MEDICATIONS: Please see MAR. ACTIVITY: As tolerated. No lifting more than 20 pounds.
--- NOTE | 2018-02-21 13:38 | PN ---
DATE OF SERVICE: 02/20/2018 SUBJECTIVE: The patient is doing better today. Pain is well controlled. He just finished his transfusion. He is doing well. OBJECTIVE: VITAL SIGNS: Stable. CARDIOVASCULAR: Regular rhythm and rate. RESPIRATORY: Lungs clear to auscultation bilaterally. ABDOMEN: Incision healing well. ASSESSMENT: Status post transfusion. PLAN: We will keep the patient for approximately 24 more hours, to see if he recurs with his bleeding or requires further transfusions. If he does not, we will subsequently discharge him tomorrow. ACTIVITY: As tolerated. DISCHARGE DIET: Continue to advance. Cory Regalado MD /[id number]
== END 2018-02-21 12:16 | disposition home or self-care (01) | DRG 812 ==
LOC: JP.ED 12:40 → JP.ICU 15:37
PROVIDERS: ADMIT Surgery; ATTEND Surgery
PROC: 30233N1 Transfusion of Nonautologous Red Blood Cells into Peripheral Vein, Percutaneous Approach (ICD-10-PCS; principal; 2018-02-19)
PROC: 30233K1 Transfusion of Nonautologous Frozen Plasma into Peripheral Vein, Percutaneous Approach (ICD-10-PCS; 2018-02-19)
PROC: 30233N1 Transfusion of Nonautologous Red Blood Cells into Peripheral Vein, Percutaneous Approach (ICD-10-PCS; 2018-02-20)
DX: D64.9 Anemia, unspecified (principal); K92.1 Melena; I10 Essential (primary) hypertension; R53.1 Weakness; K62.5 Hemorrhage of anus and rectum; R42 Dizziness and giddiness; F17.210 Nicotine dependence, cigarettes, uncomplicated; I25.10 Atherosclerotic heart disease of native coronary artery without angina pectoris; Z95.5 Presence of coronary angioplasty implant and graft; E78.00 Pure hypercholesterolemia, unspecified; Z79.82 Long term (current) use of aspirin; Z88.7 Allergy status to serum and vaccine
CPT/HCPCS: 36415; 80053; 85025; 85610; 86850; 86900; 86901; 86920 ×4; 86922 ×4; 96361; 96374; 99285; C9113; J7120 ×2; Q9965; 36430; 74177; 80048; 85014; 85018; J7030; J7040; J7050; P9016; P9017

== ENCOUNTER 2018-04-11 08:07 | Day surgery (SDC) | payer MEDICARE ==
[2018-04-11] MEDS ORDERED: Sodium Chloride 0.9% 1,000 ML IV SCH (08:45)
[2018-04-11] MEDS ORDERED: Midazolam 1 MG/ML 2 ML SDV ONE (09:34)
[2018-04-11] MEDS ORDERED: Propofol 200 MG/20 ML SDV ONE (09:46)
[2018-04-11] MEDS ORDERED: fentaNYL 100 MCG/2 ML SDV ONE (09:46)
[2018-04-11] MEDS ORDERED: ceFAZolin 1 GM Vial ONE (09:54)
[2018-04-11 12:09] VITALS: BP 121/75
--- NOTE | 2018-04-12 08:25 | OR ---
DATE OF PROCEDURE: 04/11/2018 PROCEDURE: EGD. FINDINGS: Duodenitis. COMPLICATIONS: None. COGNOS ANALYST: None. ANESTHESIA: MAC. PREOPERATIVE DIAGNOSIS: Dysphagia. POSTOPERATIVE DIAGNOSIS: Dysphagia. RISKS: Risks, benefits, alternatives, and limitations including, but not limited to infection, bleeding, and perforation were explained to the patient, who wished to proceed. PROCEDURE IN DETAIL: The patient was placed in left lateral decubitus position. The EGD scope was introduced and advanced atraumatically to the second part of the duodenum. The scope was brought back, retroflexed. No abnormalities noted, except for the duodenitis, which was biopsied using cold biopsy forceps. The GE junction appeared normal. There was a small amount of retained food noted in the proximal esophagus. The patient tolerated the procedure well. Cory Regalado MD /[id number]
== END 2018-04-11 11:30 | disposition home or self-care (01) ==
LOC: JP.SDS 08:07
PROVIDERS: ATTEND Surgery
DX: R13.10 Dysphagia, unspecified (principal); K29.80 Duodenitis without bleeding; I10 Essential (primary) hypertension; J44.9 Chronic obstructive pulmonary disease, unspecified; F17.200 Nicotine dependence, unspecified, uncomplicated
CPT/HCPCS: 43239; J0690; J2250; J2704; J3010; J7040; 88305

== ENCOUNTER 2018-07-09 07:31 | Day surgery (SDC) | payer MEDICARE ==
[~2018-07-09 07:31] MED LIST changes: -Lactated Ringers 1,000 ML IV SCH; +Midazolam 1 MG/ML 2 ML SDV ONE; +Propofol 200 MG/20 ML SDV ONE; +fentaNYL 100 MCG/2 ML SDV ONE
[2018-07-09] MEDS ORDERED: Dextrose 5%-Lactated Ringers 1,000 ML IV SCH (08:00)
[2018-07-09] MEDS ORDERED: Pantoprazole 40 MG Vial IVPUSH ONE (09:08)
[2018-07-09 10:37] VITALS: BP 127/64
--- NOTE | 2018-07-16 07:31 | OR ---
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 POSTOPERATIVE DIAGNOSES: 1. 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 2. Erosive antral gastritis. OPERATIVE PROCEDURES: Esophagogastroduodenoscopy with antral biopsies for CLOtest. ANESTHESIA: IV sedation. INDICATIONS FOR PROCEDURE: This is a 73-year-old, recently noted to have a mass involving the left adrenal gland. Biopsies had been obtained at [place], which showed this to be a renal primary. The mass has been noted to grow, at this point, up to around 9 cm in maximal size. Recent PET scan, however, showed a tumor at that location, but not elsewhere. Presumably, this is a renal cell carcinoma beginning in the superior aspect of the kidney, and now extending either directly or by metastatic disease into the adjacent adrenal gland. Again, with the PET scan, it does not show any additional sites of obvious tumor. This is a left-sided lesion and does appear to likely be causing some displacement of the stomach, and I suspect this is probably behind some of the nausea and weight loss. The plan was to proceed with an upper GI endoscopy with biopsies as indicated. Potential risks including bleeding and perforation were discussed, and the patient wishes to proceed. DETAILS OF PROCEDURE: The patient was taken to the operating room and placed in a left lateral decubitus position. IV sedation was administered, after which the upper GI endoscope was passed orally through the length of the esophagus and into the stomach, with retroflexion view of the fundus, and thereafter, through the pyloric channel and into the proximal duodenum. Findings included normal hypopharynx, larynx, upper esophageal sphincter, and esophageal body. The EG junction was likewise unremarkable. As one entered into the proximal stomach, there was some obvious displacement of the posterior wall of the stomach in an anterior direction by means of the underlying tumor. The mucosa in that area, however, was otherwise unremarkable. The patient did have some scattered erosions within the field of moderate gastritis in the antrum. No true ulcers were seen. The pyloric channel and duodenum at the junction of the third and fourth portions were unremarkable. Scope was then withdrawn, and biopsies were obtained from the antrum and sent for CLOtest for H. pylori. Minimal bleeding from the biopsy sites was seen, and the procedure was then concluded. POSTOPERATIVE PLAN: We will begin the patient on Protonix 40 mg a day. We will also give him 40 mg IV in the recovery room to initiate treatment, and then begin some Zofran 4 mg ODT. He will be taking 3 of these doses a day, roughly 20 to 30 minutes prior to meals to try to improve his oral intake. We will see him back next Sunday. The situation was discussed with the patient and son. At this point, review of the notes leads to the same conclusion that I have with the attending medical oncologist, that the only approach that would be curative in this case would be a potential resection. It is not clear why a resection has not been performed at this point, as certainly an area where an en bloc resection of the entire area could be reasonably accomplished with regional morbidity. We will obtain some additional notes from the [facility] to see if there is some compelling reason for the resection not being seriously contemplated. I would like to see the patient back on next Sunday to discuss the treatment options. Arcadio Bueno MD /[id number]
== END 2018-07-09 10:30 | disposition home or self-care (01) ==
LOC: JP.SDS 07:31
PROVIDERS: ATTEND Surgery
DX: C64.2 Malignant neoplasm of left kidney, except renal pelvis (principal); C79.72 Secondary malignant neoplasm of left adrenal gland; K29.60 Other gastritis without bleeding; I10 Essential (primary) hypertension; E78.5 Hyperlipidemia, unspecified
CPT/HCPCS: 43239; 87081; C9113; J2250; J2704; J3010; J7042